=== PATIENT | female | born 1960 ===

== ENCOUNTER 2017-01-10 09:40 | Emergency (ER) | payer MEDICAID ==
[2017-01-10 10:24] VITALS: BP 115/69
--- NOTE | 2017-01-10 10:28 | EDM.PDOC ---
ED HPI GENERAL MEDICAL PROBLEM - General Chief Complaint: Back Pain or Injury Stated Complaint: CHRONIC PAIN/JOINT PAIN Time Seen by Provider: 01/10/17 10:26 Source of Information: Reports: Patient History Limitations: Reports: No Limitations - History of Present Illness INITIAL COMMENTS - FREE TEXT/NARRATIVE: 56-year-old meat female presents to the ED with generalized pain syndrome. She states pain started well over a year ago in her upper back and neck. He did seem to travel down her left arm and then involved her right arm. Subsequently she's developed symmetrical inflammation of her elbows wrists and hands knees hips ankles and feet. She states when she gets up in the morning she feels like she is [address] she has to walk. She is recently relocating to [place] from [place]. Currently she is taking Motrin on a when necessary basis more for headache as it doesn't seem to help her joint pain. She never been formally diagnosed as having any rheumatological disorder. The history suggests more of a fibromyalgia pain syndrome. She presents with 2 small dogs whom she states are her emotional support system. Onset: Other (Chronic for over a year.) Duration: Chronic, Constant Location: Reports: Abdomen (Also complains of intermittent diffuse lower abdominal pain and is concerned that her ovaries.), Generalized (Particularly felt in her neck shoulders wrists hands hips knees ankles and toes.) Quality: Reports: Ache Severity: Moderate (Rates her pain as 8 most days.) Improves with: Reports: None, Other (Gets a little better when she gets up and moving for an hour and a half every morning. Worse again after she sits or rests for a period of time) Worsens with: Reports: Movement (The more she walks the worse her symptoms seem to be.) Context: Denies: Activity, Exercise, Lifting, Sick Contact, Trauma Associated Symptoms: Reports: Cough (Mild intermittent cough as she is a smoker. ), Headaches, Malaise, Weakness. 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 (Occasional use of Motrin.) Generalized Pain Score (Numeric/FACES): 7 - Related Data Allergies Allergy/AdvReac Type Severity Reaction Status Date / Time Penicillins Allergy Rash Verified 01/10/17 10:17 Home Meds: Home Meds Amitriptyline [Elavil] 10 mg PO BEDTIME #30 tablet 01/10/17 [Rx] Ibuprofen 400 mg PO ASDIRECTED PRN 01/10/17 [History] Sulfamethoxazole/Trimethoprim [Bactrim Ds Tablet] 1 each PO BID #10 tablet 01/10 [Rx] Past Medical History Musculoskeletal History: Reports: Osteoarthritis, Other (See Below) ( Generalized chronic pain syndrome suggestive of fibromyalgia syndrome but not proven.) Social & Family History - Tobacco Use Smoking Status *Q: Current Every Day Smoker Tobacco Use Within Last Twelve Months: Cigarettes (He is a half pack per day.) ED ROS GENERAL - Review of Systems Review Of Systems: See Below Constitutional: Reports: Malaise, Fatigue, Weight Gain (Has gained about 8 pounds in the last year states she can't exercise anymore because it makes her joints hurt worse). Denies: Fever, Chills, Decreased Appetite, Weight Loss HEENT: Reports: No Symptoms Respiratory: Reports: No Symptoms Cardiovascular: Reports: No Symptoms Endocrine: Reports: Fatigue GI/Abdominal: Reports: Abdominal Pain, Other (Bowel function tends to be alternating constipation with some diarrhea i.e. irritable bowel syndrome.). Denies: Anorexia, Black Stool (Lower abdominal pain and she's concerned it may be her ovaries.), Bloody Stool, Decreased Appetite, Difficulty Swallowing, Flatus : Reports: No Symptoms Musculoskeletal: Reports: Joint Pain (Generalized muscle and joint pain. Her lysed.), Muscle Pain Skin: Reports: No Symptoms Neurological: Reports: No Symptoms Psychiatric: Reports: No Symptoms Hematologic/Lymphatic: Reports: No Symptoms Immunologic: Reports: No Symptoms ED EXAM, GENERAL - Physical Exam Exam: See Below Exam Limited By: No Limitations General Appearance: Alert, WD/WN, No Apparent Distress Eye Exam: Bilateral Eye: Normal Fundi Ears: Normal TMs Throat/Mouth: Normal Inspection, Normal Lips, Normal Oropharynx Head: Atraumatic, Normocephalic Neck: Normal Inspection, Supple, Non-Tender, Full Range of Motion. No: Lymphadenopathy (L), Lymphadenopathy (R), Thyromegaly Respiratory/Chest: No Respiratory Distress, Lungs Clear, Normal Breath Sounds, No Accessory Muscle Use Cardiovascular: Normal Peripheral Pulses, Regular Rate, Rhythm, No Edema, No Gallop, No Murmur Peripheral Pulses: 3+: Posterior Tibial (L), Posterior Tibial (R), Dorsalis Pedis (L), Dorsalis Pedis (R) GI/Abdominal: Normal Bowel Sounds, Soft, Non-Tender, No Organomegaly, No Distention, No Abnormal Bruit, Abnormal Bowel Sounds (Slightly overactive bowel sounds throughout. No surgical scars), Other Back Exam: Normal Inspection, Full Range of Motion. No: CVA Tenderness (L), CVA Tenderness (R) Extremities: Normal Inspection, Normal Range of Motion, No Pedal Edema, Other ( Claims tenderness to palpation medial joint line of knees bilaterally no active synovitis appreciated. Again similar findings in her wrists. Hand show no evidence of rheumatoid arthritis. She can't touch the top of her head with both hands. No evidence of rotator cuff disorder.) Neurological: Alert, Oriented, CN II-XII Intact, Normal Cognition, Other (Walks slowly with a slightly wider gait within normal) Psychiatric: Normal Affect, Normal Mood, Anxious Skin Exam: Warm, Dry (Mildly anxious), Intact, Normal Color, No Rash Course - Vital Signs Last Recorded V/S: Last Vital Signs Temp 37.7 C 01/10/17 10:18 Pulse 80 01/10/17 10:18 Resp 12 01/10/17 10:18 BP 115/69 01/10/17 10:18 Pulse Ox 99 01/10/17 10:18 - Orders/Labs/Meds Labs: Laboratory Tests 01/10/17 01/10/17 01/10/17 Range/Units 10:35 11:27 11:27 WBC 7.16 (3.98-10.04) K/mm3 RBC 5.16 (3.98-5.22) M/mm3 Hgb 16.4 H (11.2-15.7) gm/L Hct 47.6 H (34.1-44.9) % MCV 92.2 (79.4-94.8) fl MCH 31.8 (25.6-32.2) pg MCHC 34.5 (32.2-35.5) g/dl RDW Std Deviation 46.3 (36.4-46.3) fL Plt Count 330 (182-369) K/mm3 MPV 10.5 (9.4-12.3) fl Neutrophils % (Manual) 42 (40-60) % Band Neutrophils % 0 (0-10) % Lymphocytes % (Manual) 56 H (20-40) % Atypical Lymphs % 0 % Monocytes % (Manual) 2 (2-10) % Eosinophils % (Manual) 0 L (0.7-5.8) % Basophils % (Manual) 0 L (0.1-1.2) Platelet Estimate Adequate RBC Morph Comment Normal ESR (0-20) mm/hr Sodium 140 (136-145) mEq/L Potassium 4.0 (3.5-5.1) mEq/L Chloride 105 (98-107) mEq/L Carbon Dioxide 25 (21-32) mEq/L Anion Gap 14.0 (5-15) BUN 9 (7-18) mg/dL Creatinine 0.9 (0.55-1.02) mg/dL Est Cr Clr Drug Dosing 64.73 mL/min Estimated GFR (MDRD) > 60 (>60) mL/min BUN/Creatinine Ratio 10.0 L (14-18) Glucose 96 (74-106) mg/dL Calcium 9.7 (8.5-10.1) mg/dL Total Bilirubin 0.7 (0.2-1.0) mg/dL AST 18 (15-37) U/L ALT 20 (14-59) U/L Alkaline Phosphatase 65 (46-116) U/L Creatine Kinase (26-192) U/L C-Reactive Protein < 0.2 (<1.0) mg/dL Total Protein 7.5 (6.4-8.2) g/dl Albumin 4.2 (3.4-5.0) g/dl Globulin 3.3 gm/dL Albumin/Globulin Ratio 1.3 (1-2) TSH 3rd Generation (0.358-3.74) uIU/mL FSH mIU/mL Luteinizing Hormone mIU/mL Urine Color Yellow (Yellow) Urine Appearance Clear (Clear) Urine pH 6.0 (5.0-8.0) Ur Specific [place] 1.010 (1.005-1.030) Urine Protein Negative (Negative) Urine Glucose (UA) Negative (Negative) Urine Ketones Negative (Negative) Urine Occult Blood Trace-lysed H (Negative) Urine Nitrite Negative (Negative) Urine Bilirubin Negative (Negative) Urine Urobilinogen 0.2 (0.2-1.0) Ur Leukocyte Esterase 2+ H (Negative) Urine RBC 0-5 (0-5) /hpf Urine WBC 5-10 H (0-5) /hpf Ur Epithelial Cells 0-5 (0-5) /hpf Urine Bacteria Few (FEW) /hpf Urine Mucus Not seen (FEW) /hpf 01/10/17 01/10/17 01/10/17 Range/Units 11:27 11:27 12:42 WBC (3.98-10.04) K/mm3 RBC (3.98-5.22) M/mm3 Hgb (11.2-15.7) gm/L Hct (34.1-44.9) % MCV (79.4-94.8) fl MCH (25.6-32.2) pg MCHC (32.2-35.5) g/dl RDW Std Deviation (36.4-46.3) fL Plt Count (182-369) K/mm3 MPV (9.4-12.3) fl Neutrophils % (Manual) (40-60) % Band Neutrophils % (0-10) % Lymphocytes % (Manual) (20-40) % Atypical Lymphs % % Monocytes % (Manual) (2-10) % Eosinophils % (Manual) (0.7-5.8) % Basophils % (Manual) (0.1-1.2) Platelet Estimate RBC Morph Comment ESR 5 (0-20) mm/hr Sodium (136-145) mEq/L Potassium (3.5-5.1) mEq/L Chloride (98-107) mEq/L Carbon Dioxide (21-32) mEq/L Anion Gap (5-15) BUN (7-18) mg/dL Creatinine (0.55-1.02) mg/dL Est Cr Clr Drug Dosing mL/min Estimated GFR (MDRD) (>60) mL/min BUN/Creatinine Ratio (14-18) Glucose (74-106) mg/dL Calcium (8.5-10.1) mg/dL Total Bilirubin (0.2-1.0) mg/dL AST (15-37) U/L ALT (14-59) U/L Alkaline Phosphatase (46-116) U/L Creatine Kinase 96 (26-192) U/L C-Reactive Protein (<1.0) mg/dL Total Protein (6.4-8.2) g/dl Albumin (3.4-5.0) g/dl Globulin gm/dL Albumin/Globulin Ratio (1-2) TSH 3rd Generation 2.042 (0.358-3.74) uIU/mL FSH 81.5 mIU/mL Luteinizing Hormone mIU/mL Urine Color (Yellow) Urine Appearance (Clear) Urine pH (5.0-8.0) Ur Specific [place] (1.005-1.030) Urine Protein (Negative) Urine Glucose (UA) (Negative) Urine Ketones (Negative) Urine Occult Blood (Negative) Urine Nitrite (Negative) Urine Bilirubin (Negative) Urine Urobilinogen (0.2-1.0) Ur Leukocyte Esterase (Negative) Urine RBC (0-5) /hpf Urine WBC (0-5) /hpf Ur Epithelial Cells (0-5) /hpf Urine Bacteria (FEW) /hpf Urine Mucus (FEW) /hpf 01/10/17 Range/Units 12:42 WBC (3.98-10.04) K/mm3 RBC (3.98-5.22) M/mm3 Hgb (11.2-15.7) gm/L Hct (34.1-44.9) % MCV (79.4-94.8) fl MCH (25.6-32.2) pg MCHC (32.2-35.5) g/dl RDW Std Deviation (36.4-46.3) fL Plt Count (182-369) K/mm3 MPV (9.4-12.3) fl Neutrophils % (Manual) (40-60) % Band Neutrophils % (0-10) % Lymphocytes % (Manual) (20-40) % Atypical Lymphs % % Monocytes % (Manual) (2-10) % Eosinophils % (Manual) (0.7-5.8) % Basophils % (Manual) (0.1-1.2) Platelet Estimate RBC Morph Comment ESR (0-20) mm/hr Sodium (136-145) mEq/L Potassium (3.5-5.1) mEq/L Chloride (98-107) mEq/L Carbon Dioxide (21-32) mEq/L Anion Gap (5-15) BUN (7-18) mg/dL Creatinine (0.55-1.02) mg/dL Est Cr Clr Drug Dosing mL/min Estimated GFR (MDRD) (>60) mL/min BUN/Creatinine Ratio (14-18) Glucose (74-106) mg/dL Calcium (8.5-10.1) mg/dL Total Bilirubin (0.2-1.0) mg/dL AST (15-37) U/L ALT (14-59) U/L Alkaline Phosphatase (46-116) U/L Creatine Kinase (26-192) U/L C-Reactive Protein (<1.0) mg/dL Total Protein (6.4-8.2) g/dl Albumin (3.4-5.0) g/dl Globulin gm/dL Albumin/Globulin Ratio (1-2) TSH 3rd Generation (0.358-3.74) uIU/mL FSH mIU/mL Luteinizing Hormone 47.1 mIU/mL Urine Color (Yellow) Urine Appearance (Clear) Urine pH (5.0-8.0) Ur Specific [place] (1.005-1.030) Urine Protein (Negative) Urine Glucose (UA) (Negative) Urine Ketones (Negative) Urine Occult Blood (Negative) Urine Nitrite (Negative) Urine Bilirubin (Negative) Urine Urobilinogen (0.2-1.0) Ur Leukocyte Esterase (Negative) Urine RBC (0-5) /hpf Urine WBC (0-5) /hpf Ur Epithelial Cells (0-5) /hpf Urine Bacteria (FEW) /hpf Urine Mucus (FEW) /hpf - Radiology Interpretation Free Text/Narrative:: 56-year-old female presents the ED for evaluation of chronic pain syndrome 1 year. History of chronic joint and muscular pain. Well everywhere. She reports it started in her neck and then traveled into her left arm than right arm about a year ago and subsequent ileus and now involving all of her joints or hips or knees or ankles her toes or hands or wrists and elbows. She states she walks like an old lady in the mornings. Sleep is severely disrupted. She takes ibuprofen when necessary my mostly for headaches as it doesn't seem to help a musculoskeletal pain. She is relocating to [place] from either [facility]. He therefore has not sought primary care. Examination shows no active synovitis or arthritis in any of her joints. Her history is strongly suggestive of fibromyalgia syndrome. She is complaining of intermittent lower abdominal pain which I suspect is due to some constipation issues. She is concerned about her ovaries. She's been menopausal for greater than 5 years. She believes she needs an ultrasound.. Plan routine lab work and one view of the abdomen will be performed. Lab work will be for rheumatoid factor as well as inflammatory markers and a total CPK and TSH. Urinalysis also to make sure there is no significant proteinuria. Vital signs are otherwise completely normal. - Re-Assessments/Exams Free Text/Narrative Re-Assessment/Exam: 01/10/17 11:18 1 view of the abdomen reveals a large amount of gas throughout the colon in parts of the small bowel without any signs of obstruction. Stool is scattered throughout the colon. 01/10/17 12:45 labs are back and reveal a normal white cell count at 7.16 with 42% neutrophils 0 bands cells and 56% lymphocytes suggesting a right shift. Hemoglobin is 16.4 hematocrit of 47.6 platelets normal 3 and 30,000. Chemistries completely normal. Sedimentation rate was 5 TSH is 2.04 which is normal urinalysis shows 2+ leukocyte esterase and 5-10 WBCs per high-power field. I sent off her FSH and LH levels as she felt that the ovaries were still working. My overall impression is she has been menopausal for about 4-5 years. Clinically she has fibromyalgia syndrome. She is going to need to follow-up with clinic physician to get started on medication for this I think she is of limited limited financial means and therefore use of medication such as Lyrica or Cymbalta may not be available to her. I will therefore start her on amitriptyline 10 mg after supper time daily to try and help with sleep patterns. She does appear to have a low-grade urinary tract infection and I will place her on Bactrim suspect tablet double strength twice daily for 5 days. Advised follow-up in the [facility] unit for follow-up and eventually placement on locations to control fibromyalgia syndrome when she has insurance. Departure - Departure Time of Disposition: 13:17 Disposition: Home, Self-Care 01 Condition: Fair Clinical Impression: Chronic fatigue fibromyalgia syndrome Urinary tract infection Qualifiers: Urinary tract infection type: acute cystitis Hematuria presence: without hematuria Qualified Code(s): N30.00 - Acute cystitis without hematuria - Discharge Information Prescriptions: Amitriptyline [Elavil] 10 mg PO BEDTIME #30 tablet Sulfamethoxazole/Trimethoprim [Bactrim Ds Tablet] 1 each PO BID #10 tablet Instructions: Chronic Fatigue Syndrome, Urinary Tract Infection, Adult Referrals: PCP,None [Primary Care Provider] - Forms: ED Department Discharge Additional Instructions: Evaluation in the emergency room today in regards primarily to generalized chronic pain syndrome involving joints and musculature started over a year ago. Associated intermittent lower abdominal pain as well. Examination did not reveal any active synovitis or inflammation of the joints to suggest rheumatoid arthritis or lupus. Blood tests were therefore done and they were all within normal limits particularly the markers were used for inflammation with a sedimentation rate of only 5 and a CRP of less than 0.2. Therefore there is no evidence of some severe connective tissue disorder. Current problems are that of fibromyalgia syndrome for which there is no definitive test. It is a chronic pain syndrome which often disrupts sleep. The only thing that showed a positive in urine testing was a low-grade urinary tract infection for which I would suggest antibiotic Bactrim double strength twice daily for 5 days to clear up infection. I will place her on low-dose amitriptyline 10 mg taken at about 7:00 or 8:00 every night try and help with sleep disorder and the fibromyalgia syndrome. If sleep-disordered can be corrected a lot of the chronic pain will improve as well. It is important to try and stay as active as possible with the fibromyalgia syndrome. Suggest follow-up with physician assistance of nurse practitioners on the other side of the hospital particularly when shoe achieve insurance and we can start you on other medications to try and help with fibromyalgia syndrome.
--- NOTE | 2017-01-10 15:10 | CR ---
Abdomen: Supine and upright views of the abdomen were obtained. Scattered gas within small bowel and colon is noted. Tubal occlusion devices are incidentally noted. Phlebolith is seen within the pelvis. No free air is seen. Impression: 1. Incidental findings. Diagnostic code #2
== END 2017-01-10 13:30 | disposition home or self-care (01) ==
LOC: JD.ED 09:40
DX: R53.82 Chronic fatigue, unspecified (principal); M79.7 Fibromyalgia; N30.00 Acute cystitis without hematuria; M19.90 Unspecified osteoarthritis, unspecified site; F17.210 Nicotine dependence, cigarettes, uncomplicated; Z88.0 Allergy status to penicillin
CPT/HCPCS: 36415; 74000; 74000-26; 80053; 81001; 82550; 83001; 83002; 84443; 85025; 85652; 86140; 87086; 99284